=== PATIENT | female | born 1985 | race Caucasian/White ===

== ENCOUNTER 2017-09-05 07:18 | Emergency (ER) | payer BC ==
[~2017-09-05] VITALS: Ht 162.6 cm; Wt 58.8 kg
[2017-09-05 07:24] VITALS: TEMP 36.7; Ht 162.6 cm; Wt 58.8 kg
[2017-09-05] MEDS ORDERED: SODIUM CHLORIDE 0.9% 1000ML 1,000 ML IV STA (07:36)
[2017-09-05] MEDS ORDERED: ONDANSETRON INJ 2 MG/ML 2 ML VIAL IV STA (07:36)
--- NOTE | 2017-09-05 07:45 | EMERGENCY ROOM VISIT NOTE ---
History First contact with patient: 07:27 Chief Complaint: ABDOMINAL PAIN Stated Complaint: ABD PAIN Nursing Triage Summary: pt reports increased nausea abd pain and diarrhea. pt reports she was seen ed [facility] for the same 3 days ago. History of Present Illness The the patient is a 32 year old female who presents to the Emergency Room with no significant past medical history with complaints of "abdominal pain". The patient states that Saturday night around 6 PM she began feeling nauseous, having extreme pain everywhere in the entire abdomen. She notes this lasted until 11 PM or midnight. She was then seen at [facility] emergency [facility] and had x- rays and blood work. She notes that per the results, it was all normal. She notes that the next day, which was Saturday, she felt better and yesterday started to feel better as well. She states that last night she became worse again with her abdominal pain and now to severe and lower in nature. Pain is a 6/10. She describes the pain now as like a ramping sensation. She feels very nauseous every time she tries to eat. She also has diarrhea, and did vomit on Saturday but that has subsided. She initially had fever and chills but this has subsided. She denies any chest pain, shortness of breath, abdominal surgeries, vaginal discharge or urinary symptoms. Review of Systems A complete 10-point Review of Systems was discussed with the patient, with pertinent positives and negatives listed in the History of Present Illness. All remaining Review of Systems questions can be considered negative unless otherwise specified. Past Medical/Surgical History No pertinent Family History Non contributory Social History Smoking Status: Never Smoker Social History: Pt. lives locally Current/Historical Medications Scheduled Dicyclomine Hcl (Bentyl), 10 MG PO TID Metronidazole (Flagyl), 500 MG PO BID Ondasetron Odt (Zofran Odt), 4 MG SL Q6H Allergies Coded Allergies: No Known Allergies (Unverified , 09/05/17) Physical Exam Vital Signs Date Time Temp Pulse Resp B/P (MAP) Pulse Ox O2 Delivery O2 Flow Rate FiO2 09/05/17 10:58 60 18 118/70 98 09/05/17 09:49 60 18 113/71 100 Room Air 09/05/17 08:31 52 16 106/70 100 Room Air 09/05/17 07:24 36.7 63 18 118/82 100 Room Air Physical Exam VITAL SIGNS - Vital signs and nursing notes were reviewed. Stable. GENERAL - 32-year-old female appearing her stated age who is in no acute distress. Communicates well with provider and answers questions appropriately. SKIN - Without rashes. No meningeal or petechial rashes. HEAD - NC/AT. EYES - PERRL with EOMI bilaterally. Sclera anicteric. EARS - No deformities of external structures noted on gross examination bilaterally. NOSE - Midline and without cyanosis. No epistaxis or purulent drainage noted. MOUTH/OROPHARYNX - Without perioral cyanosis. NECK - Neck with FROM. Supple to palpation. No meningismus. LUNGS - Chest wall symmetric without accessory muscle use, intercostals retractions, or central cyanosis. Normal vesicular breath sounds CTA B/L. No wheezes, rales, or rhonchi appreciated. CARDIAC - RRR with S1/S2. No murmur, rubs, or gallops appreciated. ABDOMEN - Abdominal contour normal without pulsations or visible masses. BS normoactive all four quadrants. Generalized abdominal tenderness, worse in the inferior region. No palpable masses, hepatosplenomegaly, or ascites noted. EXTREMITIES - No clubbing or peripheral cyanosis. No pretibial edema present. + 5/5 strength noted in UE/LE bilaterally. NEUROLOGIC - Cranial nerves II through XII grossly intact. Sensory intact to light touch throughout. PSYCH - A&O, and cooperates fully with examiner. Pt is very pleasant and interacts well with examiner. Medical Decision & Procedures ER Provider Diagnostic Interpretation: CT ABD/PELVIS IV AND ORAL CONT CLINICAL HISTORY: 3 day history of generalized abdominal pain. Nausea vomiting, diarrhea. COMPARISON STUDY: None. TECHNIQUE: Following the IV administration of 95 mL of Optiray-320, CT scan of the abdomen and pelvis was performed from the lung bases to the proximal femurs. Images are reviewed in the axial, sagittal, and coronal planes. IV contrast was administered without complication. A dose lowering technique was utilized adhering to the principles of ALARA. CT DOSE: 272.20 mGy.cm FINDINGS: Lower chest: The heart is normal in size and configuration, without pericardial effusion. The lung bases and pleural spaces are clear. Liver: The contrast-enhanced liver is normal in size, contour, and attenuation. There is no intrahepatic biliary ductal dilatation. The hepatic veins and portal veins are patent. Gallbladder: Unremarkable. Spleen: Normal in size and attenuation. Pancreas: Unremarkable. Adrenal glands: Unremarkable. Kidneys: There is symmetric renal cortical enhancement. The kidneys are normal in size without hydronephrosis. Bowel: There are no transition zones indicate bowel obstruction. The appendix appears normal. There is no evidence of acute diverticulitis. Peritoneum: There is no intraperitoneal free air or abdominal ascites. Vasculature: The abdominal aorta is normal in course and caliber. Adenopathy: None. Pelvic viscera: The bladder, and pelvic viscera are unremarkable. Skeletal structures: There are few scattered sclerotic lesions likely representing bone islands. IMPRESSION: 1. No acute intra-abdominal or pelvic findings 2. No evidence of bowel obstruction. No evidence of free air 3. Normal appendix. No evidence of diverticulitis. Electronically signed by: Jamin Lord M.D. 09/05/2017 9:55 AM Dictated Date/Time: 09/05/2017 9:51 AM Laboratory Results 09/05/17 08:44 Red Blood Count 4.82, Mean Corpuscular Volume 84.0, Mean Corpuscular Hemoglobin 28.8, Mean Corpuscular Hemoglobin Concent 34.3, Mean Platelet Volume 9.1, Neutrophils (%) (Auto) 57.2, Lymphocytes (%) (Auto) 32.9, Monocytes (%) (Auto) 8.9, Eosinophils (%) (Auto) 0.5, Basophils (%) (Auto) 0.5, Neutrophils # (Auto) 2.39, Lymphocytes # (Auto) 1.37, Monocytes # (Auto) 0.37, Eosinophils # (Auto) 0.02, Basophils # (Auto) 0.02 09/05/17 08:13 Test 09/05/17 07:40 09/05/17 08:13 09/05/17 08:44 09/05/17 10:12 Urine Color DK YELLOW Urine Appearance CLEAR (CLEAR) Urine pH 6.5 (4.5-7.5) Urine Specific [place] 1.027 (1.000-1.030) Urine Protein NEG (NEG) Urine Glucose (UA) NEG (NEG) Urine Ketones 2+ (NEG) Urine Occult Blood NEG (NEG) Urine Nitrite NEG (NEG) Urine Bilirubin NEG (NEG) Urine Urobilinogen NEG (NEG) Urine Leukocyte Esterase NEG (NEG) Urine Test NEG (NEG) Anion Gap 6.0 mmol/L (3-11) Est Creatinine Clear Calc Drug Dose 92.3 ml/min Estimated GFR () 120.1 Estimated GFR (Non- 103.6 BUN/Creatinine Ratio 14.5 (10-20) Calcium Level 8.9 mg/dl (8.5-10.1) Magnesium Level 2.1 mg/dl (1.8-2.4) Total Bilirubin 0.6 mg/dl (0.2-1) Aspartate Amino Transf (AST/SGOT) 14 U/L (15-37) Alanine Aminotransferase (ALT/SGPT) 25 U/L (12-78) Alkaline Phosphatase 43 U/L (45-117) Total Protein 7.1 gm/dl (6.4-8.2) Albumin 3.7 gm/dl (3.4-5.0) Globulin 3.4 gm/dl (2.5-4.0) Albumin/Globulin Ratio 1.1 (0.9-2) Lipase 140 U/L (73-393) White Blood Count 4.17 K/uL (4.8-10.8) Red Blood Count 4.82 M/uL (4.2-5.4) Hemoglobin 13.9 g/dL (12.0-16.0) Hematocrit 40.5 % (37-47) Mean Corpuscular Volume 84.0 fL (80-100) Mean Corpuscular Hemoglobin 28.8 pg (25-34) Mean Corpuscular Hemoglobin Concent 34.3 g/dl (32-36) Platelet Count 186 K/uL (130-400) Mean Platelet Volume 9.1 fL (7.4-10.4) Neutrophils (%) (Auto) 57.2 % Lymphocytes (%) (Auto) 32.9 % Monocytes (%) (Auto) 8.9 % Eosinophils (%) (Auto) 0.5 % Basophils (%) (Auto) 0.5 % Neutrophils # (Auto) 2.39 K/uL (1.4-6.5) Lymphocytes # (Auto) 1.37 K/uL (1.2-3.4) Monocytes # (Auto) 0.37 K/uL (0.11-0.59) Eosinophils # (Auto) 0.02 K/uL (0-0.5) Basophils # (Auto) 0.02 K/uL (0-0.2) RDW Standard Deviation 39.7 fL (36.4-46.3) RDW Coefficient of Variation 13.2 % (11.5-14.5) Immature Granulocyte % (Auto) 0.0 % Immature Granulocyte # (Auto) 0.00 K/uL (0.00-0.02) Date/Time Source Procedure Growth Status 09/05/17 10:12 Cervix Swab Trichomonas Preparation - Final Complete Medications Administered Medications (Trade) Dose Ordered Sig/Analia Route Start Time Stop Time Status Last Admin Dose Admin Sodium Chloride 1,000 ml @ 999 mls/hr Q1H1M STAT IV 09/05/17 07:36 09/05/17 08:37 DC 09/05/17 07:55 999 MLS/HR Ondansetron HCl (Zofran Inj) 4 mg NOW STAT IV 09/05/17 07:36 09/05/17 07:40 DC 09/05/17 07:55 4 MG Azithromycin (Zithromax Tab) 1,000 mg NOW ONCE PO 09/05/17 10:30 09/05/17 10:31 DC 09/05/17 10:28 1,000 MG Ceftriaxone Sodium (Rocephin Inj) 1 gm NOW STAT IV 09/05/17 10:17 09/05/17 10:22 DC 09/05/17 10:27 1 GM Metronidazole (Flagyl Tab) 500 mg NOW STAT PO 09/05/17 10:17 09/05/17 10:22 DC 09/05/17 10:27 500 MG Fluconazole (Diflucan Tab) 150 mg NOW STAT PO 09/05/17 10:17 09/05/17 10:22 DC 09/05/17 10:42 150 MG Medical Decision Patient was seen and evaluated as above in room A10. Review was performed of nursing notes and vital signs. After obtaining a thorough history and physical examination the above work up was performed. She presents with abdominal pain. She exhibits stable vital signs and a nonsurgical abdomen on exam. She notes she had xrays of her abdomen performed on Saturday which were normal but did show possible constipation. After discussing tests, the decision was made to obtain a CT scan of the abdomen and pelvis with use of IV and oral contrast. She was given 1L of NSS and 4mg of IV zofran for nausea. She was offered pain medication and initially declined. Due to a period of high-volume and acuity the patient case was transferred to Dr. Yee to continue care/disposition the patient. Please refer to his documentation regarding such. In the evaluation and treatment of this patient the following differential diagnoses were entertained: Acute appendicitis, ovarian torsion, STI, gallbladder disease, acute cholecystitis, pancreatitis, gastritis, constipation , among others. Impression Primary Impression: Abdominal pain Additional Impression: Nausea vomiting and diarrhea Departure Information Dispostion Home / Self-Care Condition GOOD Prescriptions Metronidazole (Flagyl) 500 Mg Tab 500 MG PO BID for 7 Days, #14 TAB Prov: Arthur Yee MD 09/05/17 Ondasetron Odt (ZOFRAN ODT) 4 Mg Tab 4 MG SL Q6H for Nausea, #6 TAB Prov: Arthur Yee MD 09/05/17 Dicyclomine Hcl (BENTYL) 10 Mg Cap 10 MG PO TID for 10 Days, #30 CAP Prov: Arthur Yee MD 09/05/17 Referrals No Doctor, Assigned (PCP) Patient Instructions [facility] Problem Qualifiers Primary Impression: Abdominal pain Abdominal location: generalized Qualified Codes: R10.84 - Generalized abdominal pain
[2017-09-05 08:42] LABS: ALBUMIN 3.7 gm/dl (3.4-5.0); CALCIUM 8.9 mg/dl (8.5-10.1); CREATININE 0.77 mg/dl (0.60-1.20); POTASSIUM 3.9 mmol/L (3.5-5.1)
[2017-09-05 08:45] LABS: TOTAL PROTEIN 7.1 gm/dl (6.4-8.2)
[2017-09-05 08:51] LABS: BASO % 0.5 %; BASO ABS # 0.02 K/uL (0-0.2); EOS % 0.5 %; EOS ABS # 0.02 K/uL (0-0.5); HEMATOCRIT 40.5 % (37-47); HEMOGLOBIN 13.9 g/dL (12.0-16.0); LYMPH % 32.9 %; LYMPH ABS # 1.37 K/uL (1.2-3.4); MEAN CORPUSCULAR HEMOGLOBIN 28.8 pg (25-34); MEAN CORPUSCULAR HGB CONC 34.3 g/dl (32-36); MEAN PLATELET VOLUME 9.1 fL (7.4-10.4); MONO % 8.9 %; MONO ABS # 0.37 K/uL (0.11-0.59); NEUT % 57.2 %; NEUT ABS # 2.39 K/uL (1.4-6.5); PLATELET COUNT 186 K/uL (130-400); RED CELL DISTRIBUTION WIDTH CV 13.2 % (11.5-14.5); RED CELL DISTRIBUTION WIDTH SD 39.7 fL (36.4-46.3); WHITE BLOOD COUNT 4.17 K/uL (4.8-10.8)
[2017-09-05] MEDS ORDERED: OPTIRAY 320 IV PRN (09:30)
--- NOTE | 2017-09-05 09:56 | DIAGNOSTIC IMAGING REPORT ---
CT ABD/PELVIS IV AND ORAL CONT CLINICAL HISTORY: 3 day history of generalized abdominal pain. Nausea vomiting, diarrhea. COMPARISON STUDY: None. TECHNIQUE: Following the IV administration of 95 mL of Optiray-320, CT scan of the abdomen and pelvis was performed from the lung bases to the proximal femurs. Images are reviewed in the axial, sagittal, and coronal planes. IV contrast was administered without complication. A dose lowering technique was utilized adhering to the principles of ALARA. CT DOSE: 272.20 mGy.cm FINDINGS: Lower chest: The heart is normal in size and configuration, without pericardial effusion. The lung bases and pleural spaces are clear. Liver: The contrast-enhanced liver is normal in size, contour, and attenuation. There is no intrahepatic biliary ductal dilatation. The hepatic veins and portal veins are patent. Gallbladder: Unremarkable. Spleen: Normal in size and attenuation. Pancreas: Unremarkable. Adrenal glands: Unremarkable. Kidneys: There is symmetric renal cortical enhancement. The kidneys are normal in size without hydronephrosis. Bowel: There are no transition zones indicate bowel obstruction. The appendix appears normal. There is no evidence of acute diverticulitis. Peritoneum: There is no intraperitoneal free air or abdominal ascites. Vasculature: The abdominal aorta is normal in course and caliber. Adenopathy: None. Pelvic viscera: The bladder, and pelvic viscera are unremarkable. Skeletal structures: There are few scattered sclerotic lesions likely representing bone islands. IMPRESSION: 1. No acute intra-abdominal or pelvic findings 2. No evidence of bowel obstruction. No evidence of free air 3. Normal appendix. No evidence of diverticulitis. Electronically signed by: Jamin Lord M.D. 09/05/2017 9:55 AM Dictated Date/Time: 09/05/2017 9:51 AM
[2017-09-05] MEDS ORDERED: FLUCONAZOLE 100 MG TAB PO STA (10:17)
[2017-09-05] MEDS ORDERED: METRONIDAZOLE 250 MG TAB PO STA (10:17)
[2017-09-05] MEDS ORDERED: CEFTRIAXONE SOD INJ 1 GM ADDVIAL IV STA (10:17)
[2017-09-05] MEDS ORDERED: DICY10CA55 PO (10:23)
[2017-09-05] MEDS ORDERED: METR-163 PO ×2 (10:23→10:32)
[2017-09-05] MEDS ORDERED: AZITHROMYCIN 250 MG TAB PO ONE (10:30)
[2017-09-05] MEDS ORDERED: ONDA4TAB10 SL (10:31)
--- NOTE | 2017-09-05 10:35 | EMERGENCY ROOM VISIT NOTE ---
ED Visit Note First contact with patient: 07:27 Due to a period of high volume and high acuity, the care of this patient was assumed by me. Went and discussed the patient's visit along with the fact that she has a normal CBC normal renal profile normal liver profile normal lipase. Repeat abdominal exam showed the patient to be tender in the suprapubic region. I then asked the patient at this point as she has a normal CAT scan of the abdomen and pelvis if she is having any vaginal discharge and if we need to do a pelvic examination. The patient consented to this as she does not understand why she is having the pain. On pelvic examination the patient does have a white discharge and for this reason she was started on IV Rocephin, azithromycin , Diflucan. I will send the patient home with a prescription for Flagyl pending pelvic culture results. In the meantime the patient was also given a prescription for Bentyl along with Zofran. I strongly recommended a clear liquid diet for the next 48 hours along with follow-up with gastroenterology if the patient's symptoms persist. Patient was in agreement with the treatment plan.
[2017-09-05 10:58] VITALS: BP 118/70; PULSE 60; O2SAT 98
== END 2017-09-05 11:01 | disposition home or self-care (01) ==
LOC: C.EDB 07:20 → C.EDA 11:01
DX: R10.84 Generalized abdominal pain (principal); R11.2 Nausea with vomiting, unspecified; R19.7 Diarrhea, unspecified